=== PATIENT | female | born 1965 | race Caucasian/White ===

== ENCOUNTER 2016-06-30 10:14 | Outpatient (CLI) | payer OTHER | END 2016-06-30 10:15 | disposition home or self-care (01) | DX: G47.33 Obstructive sleep apnea (adult) (pediatric) (principal) ==

== ENCOUNTER 2016-07-27 19:27 | Outpatient (CLI) | payer OTHER | END 2016-07-27 19:28 | disposition home or self-care (01) | DX: G47.33 Obstructive sleep apnea (adult) (pediatric) (principal); Z68.43 Body mass index [BMI] 50.0-59.9, adult ==

== ENCOUNTER 2016-08-24 14:15 | Outpatient (CLI) | payer OTHER | END 2016-08-24 14:16 | disposition home or self-care (01) | DX: G47.33 Obstructive sleep apnea (adult) (pediatric) (principal) ==

== ENCOUNTER 2016-10-18 09:47 | Outpatient (CLI) | payer OTHER | END 2016-10-18 09:48 | disposition home or self-care (01) | LOC: SC 09:47 | PROVIDERS: ATTEND Nurse Practitioner Family | DX: G47.33 Obstructive sleep apnea (adult) (pediatric) (principal) | CPT/HCPCS: 99212; 99214 ==

== ENCOUNTER 2016-11-22 16:11 | Outpatient (CLI) | payer OTHER | END 2016-11-22 16:12 | disposition home or self-care (01) | LOC: SC 16:11 | PROVIDERS: ATTEND Nurse Practitioner Family | DX: G47.33 Obstructive sleep apnea (adult) (pediatric) (principal) | CPT/HCPCS: 99212; 99214 ==

== ENCOUNTER 2016-12-01 08:27 | Outpatient (CLI) | payer OTHER | END 2016-12-01 08:28 | disposition home or self-care (01) | LOC: SC 08:27 | PROVIDERS: ATTEND Nurse Practitioner Family | DX: G47.33 Obstructive sleep apnea (adult) (pediatric) (principal) | CPT/HCPCS: 99212; 99214 ==

== ENCOUNTER 2017-07-26 08:08 | Outpatient (CLI) | payer OTHER ==
[2017-07-26 13:47] LABS: BASOPHILS # (AUTO) 0.1 10^3/uL (0.0-0.1); BASOPHILS % (AUTO) 0.7 %; EOSINOPHILS # (AUTO) 0.1 10^3/uL (0.0-0.7); EOSINOPHILS % (AUTO) 1.7 %; HGB - HEMOGLOBIN 12.9 g/dL (12.0-16.0); LYMPHOCYTES # (AUTO) 2.3 10^3/uL (1.5-3.5); LYMPHOCYTES % (AUTO) 30.3 %; MEAN CORPUSCULAR HEMOGLOBIN 29.5 pg (27.0-31.0); MEAN CORPUSCULAR HGB CONC 33.7 g/dL (32.0-36.0); MEAN CORPUSCULAR VOLUME 87.5 fL (81.0-99.0); MEAN PLATELET VOLUME 8.3 fL (7.9-10.8); MONOCYTES # (AUTO) 0.5 10^3/uL (0.0-1.0); MONOCYTES % (AUTO) 6.9 %; NEUTROPHILS # (AUTO) 4.6 10^3/uL (1.5-6.6); NEUTROPHILS % (AUTO) 60.4 %; PLT - PLATELET COUNT 334 10^3/uL (130-450); RED BLOOD COUNT 4.36 10^6/uL (4.20-5.40); WHITE BLOOD COUNT 7.7 x10^3/uL (4.8-10.8)
[2017-07-26 14:13] LABS: ALBUMIN 4.1 g/dL (3.2-5.5); ALBUMIN/GLOBULIN RATIO 1.1 (1.0-2.2); ALKALINE PHOSPHATASE 56 IU/L (42-121); ALT ALANINE AMINOTRANSFERASE 35 IU/L (10-60); AST ASPARTATE AMINOTRANSFERASE 22 IU/L (10-42); BILIRUBIN,TOTAL 0.5 mg/dL (0.2-1.0); BUN - BLOOD UREA NITROGEN 20 mg/dL (6-20); CALCIUM 8.9 mg/dL (8.5-10.3); CARBON DIOXIDE - CO2 23 mmol/L (21-32); CHLORIDE 103 mmol/L (101-111); CHOL/HDL RATIO 3.5 (<4.4); CHOLESTEROL 165 mg/dL; CREATININE 0.8 mg/dL (0.4-1.0); GFR - MDRD 75 (>89); GLUCOSE 108 mg/dL (70-100); HDL CHOLESTEROL 47 mg/dL; LDL CHOLESTEROL,CALCULATED 97 mg/dL; LDL/HDL RATIO 2.1 (<4.4); SODIUM 135 mmol/L (135-145); TOTAL PROTEIN 7.9 g/dL (6.7-8.2); VLDL CHOLESTEROL 21 mg/dL
[2017-07-26 15:04] LABS: HB2 TOTAL 14.1 g/dL; HEMOGLOBIN A1C 0.57 g/dL; HEMOGLOBIN A1C % 5.9 % (4.6-6.2)
[2017-07-27 13:16] LABS: HEPATITIS C ANTIBODY NON-REACTIVE (NON-REACTIVE)
== END 2017-07-26 08:09 | disposition home or self-care (01) ==
LOC: LAB.R 08:08
PROVIDERS: ATTEND Physician Assistant Medical
DX: Z00.00 Encounter for general adult medical examination without abnormal findings (principal); E55.9 Vitamin D deficiency, unspecified; R73.9 Hyperglycemia, unspecified; Z11.59 Encounter for screening for other viral diseases; Z72.89 Other problems related to lifestyle; Z79.899 Other long term (current) drug therapy
CPT/HCPCS: 80053; 80061; 82306; 83036; 83721; 84443; 85025; 86803

== ENCOUNTER 2017-09-21 08:24 | Outpatient (CLI) | payer OTHER ==
--- NOTE | 2017-09-22 16:42 | Mammography Report ---
DIGITAL SCREENING MAMMOGRAM: 09/21/2017 CLINICAL INDICATION: A 52-year-old for screening. COMPARISON: 12/2015, 09/2014, 08/2013, 08/2012, 07/2011, 07/2010, 07/2009. TECHNIQUE: Routine CC and MLO projections were obtained of the breasts. FINDINGS: The breasts demonstrate fatty replacement bilaterally. A few punctate, typically benign calcifications are present. In the left lower outer anterior breast, there is a possible nodule. Further evaluation with spot compression views and possible ultrasound is recommended. No mammographically suspicious findings are appreciated in the right breast. IMPRESSION: INCOMPLETE EXAMINATION. RECOMMENDATION: Additional evaluation of the left breast as above. BIRADS CATEGORY 0 INCOMPLETE. STANDARD QUALIFYING STATEMENTS: 1. This examination was reviewed with the aid of Computer-Aided Detection (CAD). 2. A negative or benign imaging report should not delay biopsy if clinically suspicious findings are present. Consider surgical consultation if warranted. More than 5% of cancers are not identified by imaging. 3. Dense breasts may obscure an underlying neoplasm. TD: 09/22/2017 16:40
== END 2017-09-21 08:25 | disposition home or self-care (01) ==
LOC: DI 08:24
PROVIDERS: ATTEND Physician Assistant Medical
DX: Z12.31 Encounter for screening mammogram for malignant neoplasm of breast (principal); R92.8 Other abnormal and inconclusive findings on diagnostic imaging of breast
CPT/HCPCS: 77067

== ENCOUNTER 2017-10-20 12:51 | Outpatient (CLI) | payer OTHER ==
[2017-10-20] MEDS ORDERED: LIDOCAINE 1% 10 ML MDV ONE (13:47)
--- NOTE | 2017-10-20 14:02 | Ultrasound Report ---
LEFT BREAST ULTRASOUND: 10/20/2017 CLINICAL INDICATION: Persistent nodule on mammogram. TECHNIQUE: Real-time scanning was performed with account maintenance representative static images obtained. FINDINGS: Ultrasound of the left outer breast was performed. At the 3:30 position, 3 cm from the nipple, there is a 5 x 4 x 4 mm simple cyst, accounting for the mammographic abnormality. No sonographically suspicious findings are identified. IMPRESSION: BENIGN FINDINGS, WITH A SIMPLE CYST ACCOUNTING FOR THE MAMMOGRAPHIC ABNORMALITY. RECOMMENDATION: Routine annual screening unless otherwise clinically indicated. BI-RADS CATEGORY 2 - BENIGN FINDINGS. TD: 10/20/2017 13:51
--- NOTE | 2017-10-20 14:05 | Mammography Report ---
DIAGNOSTIC LEFT MAMMOGRAM: 10/20/2017 CLINICAL INDICATION: Possible nodule on screening. COMPARISON: 09/21/2017, 01/27/2016, 10/01/2014, 09/20/2013, 09/15/2012, 08/06/2011, 08/05/2010, 08/07/2009. TECHNIQUE: Left true lateral and spot compression views. FINDINGS: The left breast again demonstrates fatty replacement. A 5 mm circumscribed nodule persists in the left lower outer anterior breast. No associated calcifications are seen. Please also refer to left breast ultrasound of the same day. IMPRESSION: BENIGN FINDINGS, WITH A SIMPLE CYST ON ULTRASOUND ACCOUNTING FOR THE MAMMOGRAPHIC ABNORMALITY. RECOMMENDATION: Routine annual screening unless otherwise clinically indicated. BI-RADS CATEGORY 2 - BENIGN FINDINGS. STANDARD QUALIFYING STATEMENTS: 1. This examination was reviewed with the aid of Computer-Aided Detection (CAD). 2. A negative or benign imaging report should not delay biopsy if clinically suspicious findings are present. Consider surgical consultation if warranted. More than 5% of cancers are not identified by imaging. 3. Dense breasts may obscure an underlying neoplasm. TD: 10/20/2017 13:56
== END 2017-10-20 12:52 | disposition home or self-care (01) ==
LOC: DI 12:51
PROVIDERS: ATTEND Physician Assistant Medical
DX: Z12.31 Encounter for screening mammogram for malignant neoplasm of breast (principal); N60.02 Solitary cyst of left breast
CPT/HCPCS: 76642

== ENCOUNTER 2018-05-28 13:18 | Emergency (ER) | payer OTHER ==
[2018-05-28] MEDS ORDERED: ACETAMINOPHEN 325 MG TABLET PO STA (13:28)
--- NOTE | 2018-05-28 13:29 | ED Physician Documentation ---
PD HPI UPPER EXT INJURY - Stated complaint Stated Complaint: R WRIST INJ - History obtained from History obtained from: Patient - History of Present Illness Location: Right, Wrist Type of injury: Fall Where injury occurred: Street Timing - onset: Today Timing - details: Abrupt onset Pain level max: 4 Worsened by: Moving, Palpating Associated symptoms: No: Weakness, Numbness, Tingling, Swelling Review of Systems Constitutional: reports: Reviewed and negative Cardiac: reports: Reviewed and negative Respiratory: reports: Reviewed and negative PD PAST MEDICAL HISTORY - Past Medical History Cardiovascular: Hypertension Musculoskeletal: Osteoarthritis - Past Surgical History Ortho: Carpal Tunnel surgery - Present Medications Home Medications: Ambulatory Orders Medication Instructions Recorded Confirmed Levothyroxine [Synthroid] 75 mcg PO QDAC 05/28/18 05/28/18 Losartan [Cozaar] 50 mg PO DAILY 05/28/18 05/28/18 Metoprolol Tartrate 25 mg PO 05/28/18 Omeprazole 20 mg PO 05/28/18 05/28/18 amLODIPine [Norvasc] 5 mg PO DAILY 05/28/18 05/28/18 - Allergies Allergies/Adverse Reactions: Allergies Allergy/AdvReac Type Severity Reaction Status Date / Time Sulfa (Sulfonamide Allergy Unknown Verified 05/28/18 13:28 Antibiotics) PD ED PE NORMAL - Vitals Vital signs reviewed: Yes - General General: Alert and oriented X 3, No acute distress - Extremities Extremities: Other (Mild tenderness to palpation to the mid carpal bones but none to the scaphoid. She is limited range of motion due to pain mostly with extension of the wrists. She has normal neurovascular function in the hand and the hand and elbow are nontender.) - Neuro Neuro: Alert and oriented X 3, Normal speech Results - Vitals Vitals: Vital Signs - 24 hr 05/28/18 13:26 Temperature 36.0 C L Heart Rate 103 H Respiratory 20 Rate Blood Pressure 155/105 H O2 Saturation 99 Oxygen O2 Source Room air - Rads (name of study) 4v R wrist Radiology: EMP read contemporaneously (Ossific dorsal density consistent with triquetral fracture) Procedures - Splint (location) R wrist Splint applied by: Tech Type of splint: Fiberglass, Short arm, Volar cock up Other: Patient tolerated well, No complications, Neurovascular intact Departure - Departure Disposition: 01 Home, Self Care Clinical Impression: Triquetral chip fracture Qualifiers: Encounter type: initial encounter Fracture type: closed Laterality: right Qualified Code(s): S62.111A - Displaced fracture of triquetrum [cuneiform] bone, right wrist, initial encounter for closed fracture Condition: Good Record reviewed to determine appropriate education?: Yes Instructions: ED Fx Wrist General Follow-Up: [facility] [Provider Group] - Within 1 week Comments: Your blood pressure was elevated today on check into the emergency department. This does not mean that you have hypertension, it is a common phenomenon to come to the emergency department and have elevated blood pressure. I recommend that you see your primary care physician within the week to have it rechecked when you are feeling better.
--- NOTE | 2018-05-28 14:31 | XRAY Report ---
Reason: wrist inj Procedure Date: 05/28/2018 Accession Number: [id number] / [id number] Procedure: XR - Wrist 4 View RT CPT Code: FULL RESULT: EXAM: RIGHT WRIST RADIOGRAPHY EXAM DATE: 05/28/2018 01:44 PM. CLINICAL HISTORY: Fall, wrist injury. COMPARISON: None. TECHNIQUE: 4 views. FINDINGS: Bones: Triangular ossific density at the dorsal aspect of the wrist measuring 3 mm. Joints: Normal. No subluxations. Soft Tissues: Normal. No soft tissue swelling. IMPRESSION: Triangular ossific density at the dorsal aspect of the wrist measuring 3 mm consistent with a triquetral avulsion type fracture. RADIA
[2018-05-28 14:55] VITALS: BP 109/54
== END 2018-05-28 14:52 | disposition home or self-care (01) ==
LOC: ED 13:18
DX: S62.111A Displaced fracture of triquetrum [cuneiform] bone, right wrist, initial encounter for closed fracture (principal); W18.30XA Fall on same level, unspecified, initial encounter; Y92.481 Parking lot as the place of occurrence of the external cause; I10 Essential (primary) hypertension
CPT/HCPCS: 29125; 73110; 99283; A9270

== ENCOUNTER 2019-06-29 07:00 | Outpatient (CLI) | payer BC, OTHER | END 2019-06-29 23:59 | disposition home or self-care (01) | LOC: LAB.R 07:00 | PROVIDERS: ATTEND Nurse Practitioner | DX: R50.9 Fever, unspecified (principal) | CPT/HCPCS: 87275; 87276 ==

== ENCOUNTER 2019-11-05 07:11 | Outpatient (CLI) | payer BC ==
[2019-11-05 07:44] LABS: BASOPHILS # (AUTO) 0.1 10^3/uL (0.0-0.1); BASOPHILS % (AUTO) 0.6 %; EOSINOPHILS # (AUTO) 0.2 10^3/uL (0.0-0.7); EOSINOPHILS % (AUTO) 2.1 %; HGB - HEMOGLOBIN 13.5 g/dL (12.0-16.0); LYMPHOCYTES # (AUTO) 2.8 10^3/uL (1.5-3.5); LYMPHOCYTES % (AUTO) 27.7 %; MEAN CORPUSCULAR HEMOGLOBIN 30.1 pg (27.0-31.0); MEAN CORPUSCULAR HGB CONC 33.1 g/dL (32.0-36.0); MEAN CORPUSCULAR VOLUME 91.1 fL (81.0-99.0); MEAN PLATELET VOLUME 9.6 fL (7.9-10.8); MONOCYTES # (AUTO) 0.5 10^3/uL (0.0-1.0); MONOCYTES % (AUTO) 5.2 %; NEUTROPHILS # (AUTO) 6.4 10^3/uL (1.5-6.6); NEUTROPHILS % (AUTO) 63.9 %; PLT - PLATELET COUNT 372 10^3/uL (130-450); RED BLOOD COUNT 4.48 10^6/uL (4.20-5.40); RED CELL DISTRIBUTION WIDTH 13.3 % (12.0-15.0)
[2019-11-05 07:49] LABS: ALBUMIN 3.9 g/dL (3.2-5.5); ALBUMIN/GLOBULIN RATIO 0.9 (1.0-2.2); ALKALINE PHOSPHATASE 54 IU/L (42-121); ALT ALANINE AMINOTRANSFERASE 39 IU/L (10-60); AST ASPARTATE AMINOTRANSFERASE 27 IU/L (10-42); BILIRUBIN,TOTAL 0.8 mg/dL (0.2-1.0); BUN - BLOOD UREA NITROGEN 14 mg/dL (6-20); CALCIUM 8.7 mg/dL (8.5-10.3); CARBON DIOXIDE - CO2 23 mmol/L (21-32); CHLORIDE 101 mmol/L (101-111); CHOL/HDL RATIO 3.8 (<4.4); CHOLESTEROL 190 mg/dL; CREATININE 0.9 mg/dL (0.4-1.0); GLUCOSE 120 mg/dL (70-100); HDL CHOLESTEROL 50 mg/dL; LDL CHOLESTEROL,CALCULATED 107 mg/dL; LDL/HDL RATIO 2.1 (<4.4); SODIUM 136 mmol/L (135-145); TOTAL PROTEIN 8.3 g/dL (6.7-8.2); VLDL CHOLESTEROL 33 mg/dL
[2019-11-05 14:02] LABS: HB2 TOTAL 14.1 g/dL; HEMOGLOBIN A1C 0.68 g/dL; HEMOGLOBIN A1C % 6.6 % (4.6-6.2)
== END 2019-11-05 07:12 | disposition home or self-care (01) ==
LOC: LAB 07:11
PROVIDERS: ATTEND Nurse Practitioner
DX: Z00.00 Encounter for general adult medical examination without abnormal findings (principal); G47.30 Sleep apnea, unspecified; E03.9 Hypothyroidism, unspecified; Z79.899 Other long term (current) drug therapy; R73.01 Impaired fasting glucose; E78.2 Mixed hyperlipidemia; I10 Essential (primary) hypertension; E55.9 Vitamin D deficiency, unspecified
CPT/HCPCS: 36415; 80053; 80061; 82306; 83036; 83721; 84443; 85025

== ENCOUNTER 2019-11-22 15:17 | Outpatient (CLI) | payer BC ==
--- NOTE | 2019-11-23 11:33 | Mammography Report ---
BILATERAL DIGITAL SCREENING MAMMOGRAM 3D/2D: 11/22/2019 CLINICAL: Routine screening. Comparison is made to exams dated: 10/20/2017 mammogram, 09/21/2017 ultrasound, and 01/27/2016 [facility]. The tissue of both breasts is predominantly fatty. No significant masses, calcifications, or other findings are seen in either breast. There has been no significant interval change. IMPRESSION: NEGATIVE There is no mammographic evidence of malignancy. A 1 year screening mammogram is recommended. This exam was interpreted at Station ID: [id number]. NOTE: For mammograms, a report in lay terms will be sent to the patient. Approximately 15% of breast malignancies will not be visualized mammographically. In the management of a palpable breast mass, a negative mammogram must not discourage biopsy of a clinically suspicious lesion. Electronically Signed By: Ladonna reyes/penrad:11/22/2019 17:05:35 ACR BI-RADS Category 1: Negative 3341F PARENCHYMAL PATTERN: (F) - The breast(s) demonstrate(s) diffuse fatty replacement. BI-RADS CATEGORY: (1) - 1 RECOMMENDATION: (ANNUAL) - Recommend routine annual screening mammography. [id number] 1 year screening LATERALITY: (B)
== END 2019-11-22 15:18 | disposition home or self-care (01) ==
LOC: DI 15:17
DX: Z12.31 Encounter for screening mammogram for malignant neoplasm of breast (principal)
CPT/HCPCS: 77063; 77067

== ENCOUNTER 2020-02-15 17:07 | Outpatient (CLI) | payer BC ==
[2020-02-15] MEDS ORDERED: IOVERSOL 320 100 ML VIAL IVP ONE (17:25)
[2020-02-15] MEDS ORDERED: IOVERSOL 320 50 ML VIAL ONE (17:25)
== END 2020-02-15 17:08 | disposition home or self-care (01) ==
LOC: DI 17:07
PROVIDERS: ATTEND Nurse Practitioner
DX: Z53.9 Procedure and treatment not carried out, unspecified reason (principal)

== ENCOUNTER 2020-02-18 11:40 | Outpatient (CLI) | payer BC ==
[2020-02-18] MEDS ORDERED: IOVERSOL 320 100 ML VIAL IVP ONE ×2 (11:51→17:38)
[2020-02-18 12:29] LABS: CALCIUM 9.4 mg/dL (8.5-10.3)
--- NOTE | 2020-02-18 17:29 | CT Report ---
PROCEDURE: ABDOMEN W/WO INDICATIONS: History of ampullary adenoma. CONTRAST: IV CONTRAST: Optiray 320 ml: 100 PO CONTRAST: *NO PO CONTRAST TECHNIQUE: After the administration of intravenous contrast, 5 mm thick sections acquired from the diaphragm to the symphysis. 5 mm coronal and sagittal reformats were acquired. For radiation dose reduction, the following was used: automated exposure control, adjustment of mA and/or kV according to patient siz e. COMPARISON: CT abdomen pelvis 08/21/2013.. FINDINGS: Image quality: Excellent. Lung bases: There is mild dependent atelectasis bilaterally. Heart size is normal. Solid organs: There is heterogeneous hypoattenuation of the liver consistent with fatty infiltration . Gallbladder is surgically absent. No biliary ductal dilatation. 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 No definite focal dominant mass identified in the surgical bed. The residual pancreas demon strates no discrete mass or pancreatic duct dilatation. No adrenal nodules. Spleen is normal in size. Kidneys demonstrate no hydronephrosis. The right renal cortical cyst is demonstrated. The opacified renal collecting systems demonstrate no suspicious filling defects. Peritoneum and bowel: Visualized bowel loops are normal in caliber and wall thickness. No free fluid or air. Nodes and vessels: No retroperitoneal or mesenteric adenopathy by size criteria. Aorta and inferior vena cava are normal in caliber. Bones: No suspicious bony lesions. No vertebral body compression fractures. Miscellaneous: There is a partially visualized [place] ventral abdominal hernia containing loops of small bowel. No definite source of bowel obstruction or circulation. IMPRESSION: 1. 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 No discrete dominant mass lesion demonstrated in the surgical bed. Recommend comparison with prior outside studies if available or continued attention on follow-up. 2. Residual pancreas demonstrates no discrete mass or pancreatic duct dilatation. 3. Hepatic steatosis. Reviewed by: Artur Thomas MD on 02/18/2020 5:28 PM PDT Approved by: Artur Thomas MD on 02/18/2020 5:28 PM PDT Station ID: [id number]
--- NOTE | 2020-02-18 17:38 | CT Report ---
PROCEDURE: CHEST W INDICATIONS: PULMONARY NODULE CONTRAST: IV CONTRAST: Optiray 320 ml: 100 PO CONTRAST: Optiray 320 ml100 TECHNIQUE: After the administration of intravenous contrast, 5 mm thick sections acquired from the pulmonary api roro to the posterior costophrenic angles. 7 mm thick coronal MIP reformats were acquired. For radia tion dose reduction, the following was used: automated exposure control, adjustment of mA and/or kV according to patient size. COMPARISON: CT abdomen pelvis 08/21/2013. Concurrent CT of the abdomen. FINDINGS: Image quality: Excellent. Lungs and pleura: There is mild dependent atelectasis bilaterally. No discrete pulmonary nodule or ma ss. An azygos lobe is incidentally noted. No pleural effusions or pneumothorax. Central and peripher al airways are patent and normal in caliber. Mediastinum: Heart size is normal. No pericardial effusion. No mediastinal or hilar adenopathy by size criteria. Thoracic aorta and central pulmonary arteries are normal in size. Esophagus is danelle l in caliber. No hiatal hernia. Bones and chest wall: No suspicious bony lesions. No vertebral body compression fractures. No axil gideon or supraclavicular adenopathy by size criteria. Thyroid gland demonstrates no focal dominant no dules. Abdomen: Visualized upper abdomen demonstrates hypoattenuation of the liver consistent with fatty in filtration. Postsurgical changes are demonstrated in the harvey hepatis region. IMPRESSION: 1. No discrete pulmonary nodule or mass demonstrated. Reviewed by: Artur Thomas MD on 02/18/2020 5:36 PM PDT Approved by: Artur Thomas MD on 02/18/2020 5:36 PM PDT Station ID: [id number]
== END 2020-02-18 11:41 | disposition home or self-care (01) ==
LOC: DI 11:40
PROVIDERS: ATTEND Nurse Practitioner
DX: R91.1 Solitary pulmonary nodule (principal); D13.5 Benign neoplasm of extrahepatic bile ducts; K76.89 Other specified diseases of liver; K76.0 Fatty (change of) liver, not elsewhere classified; E11.9 Type 2 diabetes mellitus without complications
CPT/HCPCS: 36415; 71260; 74170; 80048; Q9967

== ENCOUNTER 2020-08-25 14:00 | Outpatient (CLI) | payer BC ==
[2020-08-25 14:37] LABS: BILIRUBIN,TOTAL 0.4 mg/dL (0.2-1.0); CALCIUM 9.7 mg/dL (8.5-10.3); TOTAL PROTEIN 8.2 g/dL (6.7-8.2)
[2020-08-25 19:40] LABS: ESTIMATED AVERAGE GLUCOSE 131 mg/dL (70-100); HEMOGLOBIN A1c% 6.2 % (4.27-6.07)
== END 2020-08-25 14:01 | disposition home or self-care (01) ==
LOC: LAB 14:00
PROVIDERS: ATTEND Nurse Practitioner
DX: E11.9 Type 2 diabetes mellitus without complications (principal)
CPT/HCPCS: 36415; 80053; 82043; 82570; 83036

== ENCOUNTER 2020-08-26 07:00 | Outpatient (CLI) | payer BC ==
[2020-08-26 19:46] LABS: CREATININE,URINE 170.9 mg/dL; MICROALBUM/CREATININE RATIO,UR 24.6 ug/mg (<30.0); MICROALBUMIN,URINE 4.2 mg/dL (0-300.0)
== END 2020-08-26 23:59 | disposition home or self-care (01) ==
LOC: LAB.R 07:00
PROVIDERS: ATTEND Nurse Practitioner
DX: E11.9 Type 2 diabetes mellitus without complications (principal)
CPT/HCPCS: 82043; 82570

== ENCOUNTER 2020-12-09 10:56 | Outpatient (CLI) | payer BC ==
--- NOTE | 2020-12-10 11:58 | Mammography Report ---
BILATERAL DIGITAL SCREENING MAMMOGRAM 3D/2D: 12/09/2020 CLINICAL: Routine screening. Comparison is made to exams dated: 11/22/2019 mammogram, 10/20/2017 mammogram, 10/20/2017 ultrasound, ultrasound, 09/21/2017 mammogram, and 01/27/2016 ultrasound - [facility]. T he tissue of both breasts is predominantly fatty. No significant masses, calcifications, or other findings are seen in either breast. There has been no significant interval change. IMPRESSION: NEGATIVE There is no mammographic evidence of malignancy. A 1 year screening mammogram is recommended. This exam was interpreted at Station ID: [id number]. NOTE: For mammograms, a report in lay terms will be sent to the patient. Approximately 15% of breast malignancies will not be visualized mammographically. In the management of a palpable breast mass, a negative mammogram must not discourage biopsy of a clinically suspicious lesion. Electronically Signed By: Pablo Singh M.D. [email or web address]/[email or web address]:12/09/2020 13:05:40 ACR BI-RADS Category 1: Negative 3341F PARENCHYMAL PATTERN: (F) - The breast(s) demonstrate(s) diffuse fatty replacement. BI-RADS CATEGORY: (1) - 1 RECOMMENDATION: (ANNUAL) - Recommend routine annual screening mammography. [id number] 1 year screening LATERALITY: (B)
== END 2020-12-09 10:57 | disposition home or self-care (01) ==
LOC: DI 10:56
DX: Z12.31 Encounter for screening mammogram for malignant neoplasm of breast (principal)

== ENCOUNTER 2021-02-25 11:41 | Outpatient (CLI) | payer BC ==
--- NOTE | 2021-02-25 16:02 | XRAY Report ---
PROCEDURE: Tib/Fib RT INDICATIONS: R LOWER LEG PX TECHNIQUE: 2 views of the tibia and fibula were acquired. COMPARISON: None FINDINGS: Bones: No fractures or dislocations. No suspicious bony lesions. Degenerative changes are present at the knee demonstrate mild medial and patellofemoral compartment narrowing as well as periarticular osteophytes. Calcaneal spur is present. Soft tissues: No suspicious soft tissue calcifications or masses. IMPRESSION: No visualized acute fracture or dislocation. However, occult injury cannot be excluded. Recommend elvira rt interval imaging follow-up in 7-10 days as clinically indicated for additional evaluation. Reviewed by: Gracie Iqbal MD on 02/25/2021 4:01 PM PDT Approved by: Gracie Iqbal MD on 02/25/2021 4:01 PM PDT Station ID: [id number]
== END 2021-02-25 23:59 | disposition home or self-care (01) ==
LOC: DI.N 11:41
PROVIDERS: ATTEND Nurse Practitioner
DX: M79.661 Pain in right lower leg (principal); Z91.81 History of falling

== ENCOUNTER 2021-03-02 15:06 | Emergency (ER) | payer BC ==
[2021-03-02 15:12] VITALS: BP 160/95
--- NOTE | 2021-03-02 15:16 | ED Physician Documentation ---
History of Present Illness - Stated complaint Stated Complaint: HIGH BLOOD PRESSURE - Chief complaint Chief Complaint: Cardiac - History obtained from History obtained from: Patient - Additonal information Additional information: Patient comes to the emergency department with chief complaint of high blood pressure reading in orthopedic clinic. Patient has a history of hypertension and states she has not had any symptoms recently such as throbbing headache, chest pain, shortness of breath, or neurologic deficits. She states when they took her blood pressure when she checked in Ortho clinic, it was 200/127. They did not recheck to make sure it was area an accurate reading. Patient states her blood pressure is usually 140s over 90s. She states they told her to call her primary doctor's office to see what to do, and when she called, the nurse told her to come to the emergency department. Patient notes that she has been under some stress lately. She states her mother in September and they have been trying to take care of her estate. Patient is also stressed out about the upcoming hand surgery she has. She is on an antidepressant currently as well. No recent changes in her blood pressure meds. She was originally put on metoprolol for anxiety and palpitations. No other complaints at this time. Review of Systems Ten Systems: 10 systems reviewed and negative Constitutional: reports: Reviewed and negative Eyes: reports: Reviewed and negative Ears: reports: Reviewed and negative Nose: reports: Reviewed and negative Throat: reports: Reviewed and negative Cardiac: reports: Reviewed and negative Respiratory: reports: Reviewed and negative GI: reports: Reviewed and negative : reports: Reviewed and negative Skin: reports: Reviewed and negative Musculoskeletal: reports: Reviewed and negative Neurologic: reports: Reviewed and negative Psychiatric: reports: Reviewed and negative Endocrine: reports: Reviewed and negative Immunocompromised: reports: Reviewed and negative PD PAST MEDICAL HISTORY - Past Medical History Cardiovascular: Hypertension Musculoskeletal: Osteoarthritis - Past Surgical History Past Surgical History: Yes Ortho: Carpal Tunnel surgery - Present Medications Home Medications: Ambulatory Orders Medication Instructions Recorded Confirmed Levothyroxine [Synthroid] 75 mcg PO QDAC 05/28/18 03/02/21 Losartan [Cozaar] 50 mg PO DAILY 05/28/18 03/02/21 Metoprolol Tartrate 25 mg PO DAILY 05/28/18 03/02/21 Omeprazole 20 mg PO DAILY 05/28/18 03/02/21 amLODIPine [Norvasc] 5 mg PO DAILY 05/28/18 03/02/21 Meloxicam [Mobic] 1 tab PO DAILY 03/02/21 03/02/21 Metoprolol Tartrate [Lopressor] 25 mg PO DAILY #30 tablet 03/02/21 Naltrexone HCl/Bupropion HCl 2 tab PO BID 03/02/21 03/02/21 [Contrave ER 8-90 mg Tablet] Venlafaxine [Effexor] 1 tab PO DAILY 03/02/21 03/02/21 - Allergies Allergies/Adverse Reactions: Allergies Allergy/AdvReac Type Severity Reaction Status Date / Time Sulfa (Sulfonamide Allergy Unknown Verified 03/02/21 15:09 Antibiotics) - Social History Does the pt smoke?: No Smoking Status: Never smoker Does the pt drink ETOH?: No Does the pt have substance abuse?: No - Immunizations Immunizations are current?: Yes PD ED PE NORMAL - Vitals Vital signs reviewed: Yes - General General: Alert and oriented X 3, No acute distress, Well developed/nourished - HEENT HEENT: Atraumatic, PERRL, EOMI, Moist mucous membranes - Neck Neck: Supple, no meningeal sign - Cardiac Cardiac: RRR, No murmur, Strong equal pulses - Respiratory Respiratory: No respiratory distress, Clear bilaterally - Abdomen Abdomen: Soft, Non tender, Non distended - Derm Derm: Normal color, Warm and dry, No rash - Extremities Extremities: No deformity - Neuro Neuro: Alert and oriented X 3, site coordinator 2-12 intact, Normal speech, Other (Grossly intact) - Psych Psych: Normal mood, Normal affect Results - Vitals Vitals: Vital Signs - 24 hr 03/02/21 15:09 Temperature 36.2 C L Heart Rate 67 Respiratory 18 Rate Blood Pressure 160/95 H O2 Saturation 99 Oxygen O2 Source Room air PD MEDICAL DECISION MAKING - ED course Complexity details: considered differential, d/w patient ED course: I discussed with the patient that she does not have any symptoms of hypertensive emergency, and her blood pressure here is 160/95. We have discussed increasing the patient's metoprolol on an as-needed basis by another 25 mg that she is currently only on 25 mg once daily. The patient does have an appointment in 3 days with her primary doctor to address this issue about patient states in the meantime she would like to do this. I have given her prescription to this and. We have discussed signs of hypertensive emergency which would warrant immediate return to the emergency department. Departure - Departure Disposition: Home, Self Care Clinical Impression: Hypertension Qualifiers: Hypertension type: primary hypertension Qualified Code(s): I10 - Essential (primary) hypertension Condition: Stable Instructions: ED HTN Established Prescriptions: Metoprolol Tartrate [Lopressor] 25 mg PO DAILY #30 tablet Comments: As we have discussed, there is no evidence of a dangerously high blood pressure today. You do not have any symptoms consistent with end-organ damage. You have been under a lot of stress lately and this may be part of the reason your blood pressure is so high. You may try doubling the dose of your metoprolol if you are blood pressures are running higher than usual. You have been given a prescription for this, to use on top of the metoprolol you already have. You may monitor your blood pressures and if your blood pressure is normal, then you do not need to take the extra metoprolol. Please keep the appointment with your primary doctor on to determine a good long-term treatment plan.
== END 2021-03-02 16:14 | disposition home or self-care (01) ==
LOC: ED 15:06
DX: I10 Essential (primary) hypertension (principal); F43.9 Reaction to severe stress, unspecified
CPT/HCPCS: 99282; 99283

== ENCOUNTER 2021-04-27 08:36 | Outpatient (CLI) | payer BC ==
[2021-04-27 09:20] LABS: BUN - BLOOD UREA NITROGEN 19 mg/dL (6-20); CALCIUM 9.2 mg/dL (8.5-10.3); CARBON DIOXIDE - CO2 24 mmol/L (21-32); CHLORIDE 104 mmol/L (101-111); CHOL/HDL RATIO 4.5 (<4.4); CHOLESTEROL 224 mg/dL; CREATININE 1.1 mg/dL (0.4-1.0); GFR - MDRD 51 (>89); GLUCOSE 121 mg/dL (70-100); HDL CHOLESTEROL 50 mg/dL; LDL CHOLESTEROL,CALCULATED 133 mg/dL; LDL/HDL RATIO 2.7 (<4.4); POTASSIUM 4.1 mmol/L (3.5-5.0); SODIUM 138 mmol/L (135-145); TRIGLYCERIDES 207 mg/dL; VLDL CHOLESTEROL 41 mg/dL
[2021-04-27 09:32] LABS: THYROID STIMULATING HORMONE 4.85 uIU/mL (0.34-5.60)
[2021-04-27 10:54] LABS: ESTIMATED AVERAGE GLUCOSE 131 mg/dL (70-100); HEMOGLOBIN A1c% 6.2 % (4.27-6.07)
== END 2021-04-27 08:37 | disposition home or self-care (01) ==
LOC: LAB 08:36
PROVIDERS: ATTEND Internal Medicine
DX: I10 Essential (primary) hypertension (principal); E78.2 Mixed hyperlipidemia; R73.03 Prediabetes; E03.9 Hypothyroidism, unspecified
CPT/HCPCS: 36415; 80048; 80061; 82043; 82570; 83036; 83721; 84443

== ENCOUNTER 2021-04-28 08:00 | Outpatient (CLI) | payer BC ==
[2021-04-28 09:13] LABS: CREATININE,URINE 92.4 mg/dL; MICROALBUMIN,URINE 2.4 mg/dL (0-300.0)
== END 2021-04-28 23:59 ==
LOC: LAB.R 08:00
PROVIDERS: ATTEND Internal Medicine
DX: R73.03 Prediabetes (principal)
CPT/HCPCS: 82043; 82570

== ENCOUNTER 2022-02-10 07:42 | Outpatient (CLI) | payer BC, OTHER ==
[2022-02-10 08:04] LABS: BASOPHILS # (AUTO) 0.1 10^3/uL (0.0-0.1); BASOPHILS % (AUTO) 0.6 %; EOSINOPHILS # (AUTO) 0.2 10^3/uL (0.0-0.7); EOSINOPHILS % (AUTO) 2.2 %; HCT - HEMATOCRIT 40.6 % (37.0-47.0); LYMPHOCYTES # (AUTO) 2.3 10^3/uL (1.5-3.5); LYMPHOCYTES % (AUTO) 24.1 %; MEAN CORPUSCULAR HEMOGLOBIN 30.8 pg (27.0-31.0); MEAN CORPUSCULAR HGB CONC 34.5 g/dL (32.0-36.0); MEAN CORPUSCULAR VOLUME 89.4 fL (81.0-99.0); MEAN PLATELET VOLUME 9.8 fL (7.9-10.8); MONOCYTES # (AUTO) 0.5 10^3/uL (0.0-1.0); NEUTROPHILS # (AUTO) 6.4 10^3/uL (1.5-6.6); NEUTROPHILS % (AUTO) 67.6 %; PLT - PLATELET COUNT 383 10^3/uL (130-450); RED BLOOD COUNT 4.54 10^6/uL (4.20-5.40); RED CELL DISTRIBUTION WIDTH 13.2 % (12.0-15.0); WHITE BLOOD COUNT 9.5 x10^3/uL (4.8-10.8)
[2022-02-10 08:22] LABS: ALBUMIN 4.2 g/dL (3.2-5.5); ALBUMIN/GLOBULIN RATIO 1.1 (1.0-2.2); ALKALINE PHOSPHATASE 44 IU/L (42-121); ALT ALANINE AMINOTRANSFERASE 41 IU/L (10-60); AST ASPARTATE AMINOTRANSFERASE 38 IU/L (10-42); BILIRUBIN,TOTAL 0.7 mg/dL (0.2-1.0); BUN - BLOOD UREA NITROGEN 21 mg/dL (6-20); CALCIUM 9.5 mg/dL (8.5-10.3); CARBON DIOXIDE - CO2 25 mmol/L (21-32); CHLORIDE 98 mmol/L (101-111); CHOL/HDL RATIO 5.1 (<4.4); CHOLESTEROL 216 mg/dL; CREATININE 1.2 mg/dL (0.4-1.0); GFR - MDRD 46 (>89); GLUCOSE 142 mg/dL (70-100); HDL CHOLESTEROL 42 mg/dL; LDL CHOLESTEROL,CALCULATED 137 mg/dL; LDL/HDL RATIO 3.3 (<4.4); POTASSIUM 3.3 mmol/L (3.5-5.0); SODIUM 136 mmol/L (135-145); TOTAL PROTEIN 8.2 g/dL (6.7-8.2); TRIGLYCERIDES 186 mg/dL; VLDL CHOLESTEROL 37 mg/dL
[2022-02-10 08:33] LABS: THYROID STIMULATING HORMONE 2.31 uIU/mL (0.34-5.60)
[2022-02-10 09:00] LABS: CREATININE,URINE 179.8 mg/dL; MICROALBUM/CREATININE RATIO,UR 47.8 ug/mg (<30.0); MICROALBUMIN,URINE 8.6 mg/dL (0-300.0)
[2022-02-10 12:40] LABS: ESTIMATED AVERAGE GLUCOSE 146 mg/dL (70-100); HEMOGLOBIN A1c% 6.7 % (4.27-6.07)
== END 2022-02-10 07:43 | disposition home or self-care (01) ==
LOC: LAB 07:42
PROVIDERS: ATTEND Internal Medicine
DX: I10 Essential (primary) hypertension (principal); E78.2 Mixed hyperlipidemia; E55.9 Vitamin D deficiency, unspecified; R73.03 Prediabetes; F41.9 Anxiety disorder, unspecified; F32.A Depression, unspecified
CPT/HCPCS: 36415; 80053; 80061; 82043; 82306; 82570; 83036; 83721; 84443; 85025

== ENCOUNTER 2022-03-09 09:16 | Outpatient (CLI) | payer OTHER ==
--- NOTE | 2022-03-10 09:08 | Mammography Report ---
BILATERAL DIGITAL SCREENING MAMMOGRAM 3D/2D: 03/09/2022 CLINICAL: Routine screening. Comparison is made to exams dated: 12/09/2020 mammogram, 11/22/2019 mammogram, 10/20/2017 mammogram, an d 09/21/2017 mammogram - [facility]. Both breasts are almost entirely fatty (category a/<25% glandular tissue). No significant masses, calcifications, or other findings are seen in either breast. There has been no significant interval change. IMPRESSION: NEGATIVE There is no mammographic evidence of malignancy. A 1 year screening mammogram is recommended. Based on the Tyrer Cuzick model (a risk assessment model) the patients lifetime risk is 5.9% and her 10 year risk is 2.1%. According to the ACR, ACS, and NCCN guidelines, an annual breast MRI exam regina g with mammogram is recommended if the patients lifetime risk is 20% or greater. This exam was interpreted at Station ID: [id number]. NOTE: For mammograms, a report in lay terms will be sent to the patient. Approximately 15% of breast malignancies will not be visualized mammographically. In the management of a palpable breast mass, a negative mammogram must not discourage biopsy of a clinically suspicious lesion. Electronically Signed By: Ermias [email or web address]/[email or web address]:03/09/2022 17:03:42 ACR BI-RADS Category 1: Negative 3341F PARENCHYMAL PATTERN: (F) - The breast(s) demonstrate(s) diffuse fatty replacement. BI-RADS CATEGORY: (1) - 1 RECOMMENDATION: (ANNUAL) - Recommend routine annual screening mammography. [id number] 1 year screening LATERALITY: (B)
== END 2022-03-09 09:17 | disposition home or self-care (01) ==
LOC: DI 09:16
DX: Z12.31 Encounter for screening mammogram for malignant neoplasm of breast (principal)

== ENCOUNTER 2022-10-29 09:11 | Outpatient (CLI) | payer OTHER ==
[2022-10-29 13:05] LABS: ALBUMIN 3.8 g/dL (3.2-5.5); ALBUMIN/GLOBULIN RATIO 0.9 (1.0-2.2); ALKALINE PHOSPHATASE 40 IU/L (42-121); ALT ALANINE AMINOTRANSFERASE 36 IU/L (10-60); AST ASPARTATE AMINOTRANSFERASE 27 IU/L (10-42); BILIRUBIN,TOTAL 0.6 mg/dL (0.2-1.0); BUN - BLOOD UREA NITROGEN 20 mg/dL (6-20); CARBON DIOXIDE - CO2 25 mmol/L (21-32); CHLORIDE 101 mmol/L (101-111); CHOL/HDL RATIO 3.5 (<4.4); CHOLESTEROL 194 mg/dL; CREATININE 1.2 mg/dL (0.4-1.0); GFR - MDRD 46 (>89); GLUCOSE 104 mg/dL (70-100); HDL CHOLESTEROL 55 mg/dL; LDL CHOLESTEROL,CALCULATED 110 mg/dL; POTASSIUM 3.6 mmol/L (3.5-5.0); SODIUM 139 mmol/L (135-145); TRIGLYCERIDES 147 mg/dL; VLDL CHOLESTEROL 29 mg/dL
[2022-10-29 13:41] LABS: ESTIMATED AVERAGE GLUCOSE 126 mg/dL (70-100)
[2022-10-29 18:23] LABS: MICROALBUM/CREATININE RATIO,UR 21.8 ug/mg (<30.0); MICROALBUMIN,URINE 3.8 mg/dL (0-300.0)
== END 2022-10-29 09:12 | disposition home or self-care (01) ==
LOC: LAB.N 09:11
PROVIDERS: ATTEND Internal Medicine
DX: E11.9 Type 2 diabetes mellitus without complications (principal)
CPT/HCPCS: 36415; 80053; 80061; 82043; 82570; 83036; 83721

== ENCOUNTER 2023-03-18 08:08 | Outpatient (CLI) | payer OTHER ==
[2023-03-18 08:42] LABS: ESTIMATED AVERAGE GLUCOSE 120 mg/dL (70-100); HEMOGLOBIN A1c% 5.8 % (4.27-6.07)
[2023-03-18 08:54] LABS: THYROID STIMULATING HORMONE 2.08 uIU/mL (0.34-5.60)
[2023-03-18 09:05] LABS: ALBUMIN 4.2 g/dL (3.2-5.5); ALBUMIN/GLOBULIN RATIO 1.4 (1.0-2.2); ALKALINE PHOSPHATASE 42 IU/L (42-121); ALT ALANINE AMINOTRANSFERASE 24 IU/L (10-60); AST ASPARTATE AMINOTRANSFERASE 18 IU/L (10-42); BILIRUBIN,TOTAL 0.4 mg/dL (0.2-1.0); BUN - BLOOD UREA NITROGEN 21 mg/dL (6-20); CALCIUM 9.5 mg/dL (8.5-10.3); CARBON DIOXIDE - CO2 28 mmol/L (21-32); CHLORIDE 101 mmol/L (101-111); CHOL/HDL RATIO 3.9 (<4.4); CHOLESTEROL 206 mg/dL; CREATININE 1.3 mg/dL (0.6-1.3); GFR - MDRD 42 (>89); GLUCOSE 107 mg/dL (74-104); HDL CHOLESTEROL 53 mg/dL; LDL CHOLESTEROL,CALCULATED 119 mg/dL; LDL/HDL RATIO 2.2 (<4.4); POTASSIUM 3.4 mmol/L (3.5-4.5); SODIUM 138 mmol/L (135-145); TOTAL PROTEIN 7.3 g/dL (6.4-8.9); TRIGLYCERIDES 168 mg/dL (48-352); VLDL CHOLESTEROL 34 mg/dL
[2023-03-18 09:05] LABS: CREATININE,URINE 209.3 mg/dL; MICROALBUM/CREATININE RATIO,UR 23.4 ug/mg (<30.0); MICROALBUMIN,URINE 4.9 mg/dL
== END 2023-03-18 08:09 | disposition home or self-care (01) ==
LOC: LAB 08:08
PROVIDERS: ATTEND Internal Medicine
DX: E11.9 Type 2 diabetes mellitus without complications (principal); E78.2 Mixed hyperlipidemia; E03.9 Hypothyroidism, unspecified
CPT/HCPCS: 36415; 80053; 80061; 82043; 82570; 83036; 83721; 84443

== ENCOUNTER 2023-06-03 14:03 | Outpatient (CLI) | payer OTHER ==
[2023-06-03 18:02] LABS: ALBUMIN 4.3 g/dL (3.2-5.5); ALBUMIN/GLOBULIN RATIO 1.1 (1.0-2.2); BILIRUBIN,TOTAL 0.4 mg/dL (0.2-1.0); CALCIUM 9.9 mg/dL (8.5-10.3); CREATININE 1.3 mg/dL (0.6-1.3); POTASSIUM 3.3 mmol/L (3.5-4.5); TOTAL PROTEIN 8.3 g/dL (6.4-8.9)
[2023-06-03 18:13] LABS: ESTIMATED AVERAGE GLUCOSE 126 mg/dL (70-100)
== END 2023-06-03 14:04 | disposition home or self-care (01) ==
LOC: LAB.N 14:03
PROVIDERS: ATTEND Internal Medicine
DX: E11.9 Type 2 diabetes mellitus without complications (principal)
CPT/HCPCS: 36415; 80053; 83036

== ENCOUNTER 2023-09-02 07:53 | Outpatient (CLI) | payer OTHER ==
[2023-09-02 08:18] LABS: MICROALBUM/CREATININE RATIO,UR 17.4 ug/mg (<30.0); MICROALBUMIN,URINE 2.6 mg/dL
[2023-09-02 08:19] LABS: ALBUMIN 4.1 g/dL (3.2-5.5); ALBUMIN/GLOBULIN RATIO 1.1 (1.0-2.2); ALKALINE PHOSPHATASE 55 IU/L (42-121); ALT ALANINE AMINOTRANSFERASE 16 IU/L (10-60); AST ASPARTATE AMINOTRANSFERASE 12 IU/L (10-42); BILIRUBIN,TOTAL 0.4 mg/dL (0.2-1.0); BUN - BLOOD UREA NITROGEN 32 mg/dL (6-20); CALCIUM 10.1 mg/dL (8.5-10.3); CARBON DIOXIDE - CO2 30 mmol/L (21-32); CHLORIDE 100 mmol/L (101-111); CHOL/HDL RATIO 4.3 (<4.4); CHOLESTEROL 209 mg/dL; CREATININE 1.3 mg/dL (0.6-1.3); GFR - MDRD 42 (>89); GLUCOSE 114 mg/dL (74-104); HDL CHOLESTEROL 49 mg/dL; LDL CHOLESTEROL,CALCULATED 123 mg/dL; LDL/HDL RATIO 2.5 (<4.4); POTASSIUM 3.7 mmol/L (3.5-4.5); SODIUM 136 mmol/L (135-145); TOTAL PROTEIN 7.9 g/dL (6.4-8.9); TRIGLYCERIDES 187 mg/dL (48-352); VLDL CHOLESTEROL 37 mg/dL
[2023-09-02 09:45] LABS: ESTIMATED AVERAGE GLUCOSE 120 mg/dL (70-100); HEMOGLOBIN A1c% 5.8 % (4.27-6.07)
== END 2023-09-02 07:54 | disposition home or self-care (01) ==
LOC: LAB 07:53
PROVIDERS: ATTEND Internal Medicine
DX: I10 Essential (primary) hypertension (principal); E11.9 Type 2 diabetes mellitus without complications
CPT/HCPCS: 36415; 80053; 80061; 82043; 82570; 83036; 83721

== ENCOUNTER 2023-09-21 09:19 | Outpatient (CLI) | payer OTHER ==
--- NOTE | 2023-09-22 09:33 | Mammography Report ---
BILATERAL DIGITAL SCREENING MAMMOGRAM 3D/2D: 09/21/2023 CLINICAL: Routine screening. Comparison is made to exams dated: 03/09/2022 mammogram, 12/09/2020 mammogram, 11/22/2019 mammogram, mammogram, 09/21/2017 mammogram, and 01/27/2016 mammogram - [facility]. Both breasts are almost entirely fatty (category a/<25% glandular tissue). No significant masses, calcifications, or other findings are seen in either breast. There has been no significant interval change. IMPRESSION: NEGATIVE There is no mammographic evidence of malignancy. A 1 year screening mammogram is recommended. Based on the Tyrer Cuzick model (a risk assessment model) the patient's lifetime risk is 5.8% and her 10 year risk is 2.2%. According to the ACR, ACS, and NCCN guidelines, an annual breast MRI exam regina g with mammogram is recommended if the patient's lifetime risk is 20% or greater. This exam was interpreted at Station ID: [id number]. NOTE: For mammograms, a report in lay terms will be sent to the patient. Approximately 15% of breast malignancies will not be visualized mammographically. In the management of a palpable breast mass, a negative mammogram must not discourage biopsy of a clinically suspicious lesion. Electronically Signed By: Liz salmon/aline:09/21/2023 17:29:19 letter sent: No_Letter ACR BI-RADS Category 1: Negative 3341F PARENCHYMAL PATTERN: (F) - The breast(s) demonstrate(s) diffuse fatty replacement. BI-RADS CATEGORY: (1) - 1 RECOMMENDATION: (ANNUAL) - Recommend routine annual screening mammography. [id number] 1 year screening LATERALITY: (B)
== END 2023-09-21 09:20 | disposition home or self-care (01) ==
LOC: DI 09:19
PROVIDERS: ATTEND Internal Medicine
DX: Z12.31 Encounter for screening mammogram for malignant neoplasm of breast (principal)

== ENCOUNTER 2023-12-21 08:00 | Outpatient (CLI) | payer OTHER ==
[2023-12-21 17:51] LABS: BASOPHILS # (AUTO) 0.1 10^3/uL (0.0-0.1); BASOPHILS % (AUTO) 0.7 %; EOSINOPHILS # (AUTO) 0.2 10^3/uL (0.0-0.7); EOSINOPHILS % (AUTO) 1.9 %; HCT - HEMATOCRIT 39.5 % (37.0-47.0); HGB - HEMOGLOBIN 12.6 g/dL (12.0-16.0); LYMPHOCYTES # (AUTO) 3.2 10^3/uL (1.5-3.5); LYMPHOCYTES % (AUTO) 31.2 %; MEAN CORPUSCULAR HEMOGLOBIN 29.4 pg (27.0-31.0); MEAN CORPUSCULAR HGB CONC 31.9 g/dL (32.0-36.0); MEAN CORPUSCULAR VOLUME 92.1 fL (81.0-99.0); MEAN PLATELET VOLUME 10.9 fL (7.9-10.8); MONOCYTES # (AUTO) 0.6 10^3/uL (0.0-1.0); MONOCYTES % (AUTO) 5.7 %; NEUTROPHILS # (AUTO) 6.2 10^3/uL (1.5-6.6); NEUTROPHILS % (AUTO) 60.1 %; PLT - PLATELET COUNT 402 10^3/uL (130-450); RED BLOOD COUNT 4.29 10^6/uL (4.20-5.40); RED CELL DISTRIBUTION WIDTH 13.9 % (12.0-15.0); WHITE BLOOD COUNT 10.2 x10^3/uL (4.8-10.8)
[2023-12-21 18:25] LABS: ALBUMIN 3.9 g/dL (3.2-5.5); ALBUMIN/GLOBULIN RATIO 1.1 (1.0-2.2); BILIRUBIN,TOTAL 0.3 mg/dL (0.2-1.0); CREATININE 1.3 mg/dL (0.6-1.3); POTASSIUM 3.9 mmol/L (3.5-4.5); TOTAL PROTEIN 7.3 g/dL (6.4-8.9)
== END 2023-12-21 23:59 | disposition home or self-care (01) ==
LOC: LAB.N 08:00
PROVIDERS: ATTEND Nurse Practitioner
DX: R82.2 Biliuria (principal)
CPT/HCPCS: 36415; 80053; 85025; 87086; 87181